=== PATIENT | male | born 1995 | race Two or more races ===

== ENCOUNTER 2016-09-23 22:26 | Emergency (ER) | payer OTHER ==
[~2016-09-23] VITALS: Ht 177.8 cm; Wt 83.9 kg
[2016-09-23 22:26] VITALS: BP 148/90
[2016-09-23] MEDS ORDERED: SMZ/TMP 800/160MG TABLET. PO ONE ×2 (23:15→23:38)
--- NOTE | 2016-09-23 23:16 | PHYS DOC ---
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 Rash. Patient states that on Sunday he shaved his pubic hairs. He says after shaving he and his spouse had an extended period of sexual intercourse after which he did not shower. He says that over the past few days he's had small tender red bumps in his groin and his spouse is concerned of possible infection. He denies history of sexual transmitted infection he denies bowel or bladder symptoms no fever chills sweats or myalgias. He denies immunosuppression and states that he is normally healthy with up-to-date tetanus. There is mild itching and tenderness at the bumps no other symptoms. Back pain. Patient states that for the past 2 days he's also had mild to moderate right sided upper back muscle soreness and stiffness. The patient is right handed but he denies any aggressive or strenuous activity in the days prior to the onset of his symptoms. He denies any bony pain he has taken no medications for this his spouse has tried to massage the muscle spasms out without any relief. Timing/Duration: getting worse (2 days) Severity: mild Modifying Factors: worse with movement, improves with rest Associated Symptoms: rash, other Allergies: Coded Allergies: No Known Drug Allergies (Unverified , 09/23/16) Past Medical History Medical History: no pertinent history Surgical History: noncontributory Social History Smoker: non-smoker Alcohol: none Drugs: none Review of Systems Constitutional: denies chills, denies fever Respiratory: denies cough, denies shortness of breath Cardiovascular: denies chest pain, denies palpitations Gastrointestinal: denies diarrhea, denies vomiting Genitourinary: see HPI, denies dysuria, denies hematuria Musculoskeletal: see HPI Skin: see HPI Physical Exam General Appearance: WD/WN, no apparent distress Ear, Nose, Throat: hearing grossly normal, normal ENT inspection Neck: non-tender, supple Respiratory: normal breath sounds, no respiratory distress Cardiovascular: normal peripheral pulses, regular rate, rhythm Gastrointestinal: non tender, soft Back: no CVA tenderness, no vertebral tenderness (right sided trapezius rhomboid and latissimus hypertonicity with tenderness no bony tenderness or palpable deformity) Extremities: non-tender, normal inspection Neurologic/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 I discussed shaving hygiene extensively with the patient after which she expressed agreement and understanding of the treatment plan. Departure Time of Disposition: 23:12 Disposition: HOME, SELF-CARE Diagnosis: groin rash poss MRSA, thoracic strain Condition: GOOD Patient Instructions: Thoracic Strain Additional Instructions: Activity as tolerated. Heating pad to sore muscles 20 minutes 4-6 times daily followed by gentle stretching. OTC tylenol/ibuprofen as needed. Use new razors to shave. Use warm/hot water to wash the area before shaving, while shaving, and to rinse area after shaving. Final rinse of shaved area with cold water to close pores and prevent infection. Rx: bactrim ds, take with food. Follow up with your doctor in 2 weeks if not better. Return to ED with new or changing symptoms. JOS PENA DO Sep 23, 2016 23:16
== END 2016-09-23 23:43 | disposition home or self-care (01) ==
LOC: ER 22:26
DX: R21 Rash and other nonspecific skin eruption (principal); S29.012A Strain of muscle and tendon of back wall of thorax, initial encounter; X58.XXXA Exposure to other specified factors, initial encounter; Y93.89 Activity, other specified; Y99.8 Other external cause status; Y92.89 Other specified places as the place of occurrence of the external cause
CPT/HCPCS: 99283